=== PATIENT | female | born 2000 | race Caucasian/White ===

== ENCOUNTER → 2023-04-26 15:42 | Outpatient (BNVA) | payer BC, SELFPAY | PROVIDERS: Family Provider Pediatrics Adolescent Medicine; Visit Provider Nurse Practitioner Women's Health | DX: N91.5 Oligomenorrhea, unspecified (principal) | CPT/HCPCS: 84146; 84439; 84443; 84702 ==

== ENCOUNTER → 2023-05-01 15:25 | Outpatient (BNVA) | payer BC, SELFPAY | PROVIDERS: Family Provider Pediatrics Adolescent Medicine; Visit Provider Nurse Practitioner Women's Health | DX: Z30.017 Encounter for initial prescription of implantable subdermal contraceptive (principal) | CPT/HCPCS: 81025 ==

== ENCOUNTER → 2023-08-07 10:53 | Outpatient (BNVA) | payer BC, SELFPAY | PROVIDERS: Family Provider Pediatrics Adolescent Medicine; Visit Provider Nurse Practitioner Women's Health | DX: Z01.419 Encounter for gynecological examination (general) (routine) without abnormal findings (principal); L73.2 Hidradenitis suppurativa | CPT/HCPCS: 80048; 88175 ==